=== PATIENT | male | born 1940 | race Caucasian/White ===

== ENCOUNTER 2019-04-03 13:50 | Observation (INO) ==
[2019-04-03 14:22] LABS: Basophils % 0.4 %; Eosinophils # 0.1 K/mcL (0.0-0.6); Eosinophils % 1.2 %; Hematocrit 50.9 % (37.5-50.1); Hemoglobin 17.1 g/dL (12.9-16.9); Immature Granulocytes % 0.3 % (0-4); Lymphocytes # 1.9 K/mcL (0.6-4.6); Lymphocytes % 27.5 %; Mean Corpuscular HGB Conc 33.6 g/dL (31.6-35.5); Mean Corpuscular Hemoglobin 29.3 pg (28.0-33.3); Mean Corpuscular Volume 87.2 fL (83.0-100.0); Mean Platelet Volume 11.9 fL (9.4-12.4); Monocytes # 0.5 K/mcL (0.0-1.3); Monocytes % 7.2 %; Neutrophils # 4.4 K/mcL (1.6-8.9); Platelet Count 175 K/mcL (140-400); Red Blood Count 5.84 M/mcL (4.19-5.50); Red Cell Distribution Width 14.2 % (11.5-14.5); Segmented Neutrophils % 63.4 %
[2019-04-03] MEDS ORDERED: Aspirin 81 MG TAB.CHEW PO STA (14:31)
[2019-04-03] MEDS ORDERED: Nitroglycerin 0.4 MG TAB.SUBL SL PRN (14:31)
[2019-04-03] MEDS ORDERED: GI Cocktail 40 ML EACH PO ONE (14:32)
--- NOTE | 2019-04-03 14:42 | Emergency Department Note ---
Disposition Clinical Impression: Esophagitis Chest pain Qualifiers: Chest pain type: unspecified Qualified Code(s): R07.9 - Chest pain, unspecified Disposition: Admitted As Inpatient Condition: Fair Time of Disposition: 17:52 General Adult HPI - General Chief complaint: ED Chest Pain Stated complaint: Chest Pain Time Seen by Provider: 04/03/19 14:01 Source: patient, family Limitations: no limitations Nursing Notes Reviewed: Yes Vital Signs Reviewed: Yes - History of Present Illness HPI Narrative: Patient is a 78-year-old male with a past medical history of aortic valve replacement, one cardiac stent, and one pack per day smoking presents to the emergency department for evaluation of chest pain that is been going on since yesterday. He describes it as a substernal sharp/pressure-like pain is currently a 4/10. States this feels improved if he stands up and worsens with sitting down or laying flat. States he also has a history of gastritis and this feels similar to that. Has admits to associated dyspnea. He denies any diaphoresis, nausea or vomiting but admits to feelings of indigestion and belching. States he does not feel similar to when he had his cardiac stents placed in the past. States that his aortic valve was replaced at the [facility]. His states that he does not routinely get his coagulation profile checked. However, he is on Coumadin. Pain Scale: 8 - Related Data Home Medications Medication Instructions Recorded Confirmed Omeprazole [PriLOSEC] 40 mg PO QPM 07/20/16 04/03/19 Aspirin [Lo-Dose Aspirin EC] 81 mg PO QPM 09/27/16 04/03/19 Tamsulosin HCl [Flomax] 0.4 mg PO HS 04/03/19 04/03/19 Warfarin [Coumadin] 4 mg PO 1800 04/03/19 04/03/19 Allergies Allergy/AdvReac Type Severity Reaction Status Date / Time No Known Allergies Allergy Verified 05/10/17 09:34 All systems ED: reviewed and negative except as stated. Review of Systems: As Per HPI Constitutional: Denies: fever Cardiovascular: Reports: chest pain. Denies: palpitations, dyspnea on exertion, edema, syncope, paroxysmal nocturnal dyspnea Respiratory: Reports: dyspnea. Denies: cough, wheezes, hemoptysis, sputum production Gastrointestinal: Denies: abdominal pain, vomiting, diarrhea, hematemesis, melena, hematochezia Musculoskeletal: Reports: back pain. Denies: neck pain Integumentary: Denies: rash Neurological: Denies: headache, weakness, numbness, paresthesias, confusion Past Medical History - Past Medical History Attestation: Yes The following information was validated with the patient. Medical history: Reports: cancer, valvular heart disease Surgical history: Reports: cholecystectomy, other Psychiatric history: Reports: no psych history - Social History Smoking Status: Current every day smoker Smokeless Tobacco Status: No Alcohol use: Reports: none Drug use: Reports: none Physical Exam CONSTITUTIONAL: A&O X 3. Sitting up in bed switching from a standing to the sitting position trying to find a position of comfort HEAD: Normocephalic; atraumatic EYES: PERRL, no scleral icterus NOSE: The nose is normal in appearance without rhinorrhea NECK: No JVD or distended neck veins RESP: Normal chest excursion with respiration; breath sounds clear and equal b ilaterally; no wheezes, rhonchi, or rales CARD: Regular rhythm, without murmurs, rub or gallop ABD: Distended; non-tender, soft, without rigidity, rebound or guarding,no pulsatile mass CHEST: No pain with palpation SKIN: Normal for age and race; warm and dry without diaphoresis ; no apparent lesions EXTREMITIES: Pulses are 2 plus and equal times 4 extremities, no peripheral edema or calf muscle pain - General Limitations: no limitations General appearance: alert, in no apparent distress Course Course Narrative: On review of patient's past medical history patient had an echo performed in November 2017 that showed an EF of 60-65% with atypical septal motion consistent with his postoperative status and mild left diastolic dysfunction. The mechanical aortic valve appeared well seated. Mild tricuspid regurgitation. He will undergo evaluation for cardiac ideology of this pain as well as treatment with nitroglycerin and a GI cocktail and then we will reassess. His initial EKG shows no ischemic changes. - Reevaluation(s) Reevaluation #1: The patient CT scan of the abdomen and pelvis showed wall thickening of the distal esophagus possibly related to esophagitis. The patient's pain improved with the nitroglycerin and then he received a GI cocktail which resolved his pain. Concern is that given the patient's risk factors with his cardiac history that this could be an underlying cardiac issue in which she requires admission as a chest pain rule out. The is a high likelihood of the possibility that was also related to his esophagitis he may require further treatment. Time: 19:22 Vital Signs Temperature 97.6 F 04/03/19 14:00 Pulse Rate 63 04/03/19 14:00 Respiratory Rate 20 04/03/19 14:00 Blood Pressure 151/84 04/03/19 14:00 O2 Sat by Pulse Oximetry 97 04/03/19 14:00 Temperature 97.6 F 04/03/19 14:00 Pulse Rate 64 04/03/19 18:32 Respiratory Rate 18 04/03/19 18:32 Blood Pressure 106/59 04/03/19 18:32 O2 Sat by Pulse Oximetry 94 04/03/19 18:32 Oxygen Delivery Oxygen Delivery Room Air Medical Decision Making - Medical Records Medical records reviewed: Yes I reviewed the patient's medical records. - Lab Data Lab results reviewed: Yes I reviewed the patient's lab results. Result diagrams: 04/03/19 14:04 04/03/19 14:04 Lab Results 04/03/19 04/03/19 04/03/19 Range/Units 14:04 14:04 14:04 WBC 6.9 (4.3-11.1) K/mcL RBC 5.84 H (4.19-5.50) M/mcL Hgb 17.1 H (12.9-16.9) g/dL Hct 50.9 H (37.5-50.1) % MCV 87.2 (83.0-100.0) fL MCH 29.3 (28.0-33.3) pg MCHC 33.6 (31.6-35.5) g/dL RDW 14.2 (11.5-14.5) % Plt Count 175 (140-400) K/mcL MPV 11.9 (9.4-12.4) fL Immature Gran % 0.3 (0-4) % Seg Neutrophils % 63.4 % Lymphocytes % 27.5 % Monocytes % 7.2 % Eosinophils % 1.2 % Basophils % 0.4 % Neutrophils # 4.4 (1.6-8.9) K/mcL Lymphocytes # 1.9 (0.6-4.6) K/mcL Monocytes # 0.5 (0.0-1.3) K/mcL Eosinophils # 0.1 (0.0-0.6) K/mcL Basophils # 0.0 (0.0-0.2) K/mcL PT 17.2 H (9.4-12.1) Seconds INR 1.5 Sodium 141 (136-145) mEq/L Potassium 4.1 (3.5-5.1) mEq/L Chloride 106 (98-107) mEq/L Carbon Dioxide 25 (23-29) mEq/L BUN 24 H (8-23) mg/dL Creatinine 0.86 (0.70-1.30) mg/dL Est GFR ( Amer) > 60 (> 60) Est GFR (Non-Af Amer) > 60 (> 60) BUN/Creatinine Ratio 28 H (6-26) Glucose 93 (70-105) mg/dL Calculated Osmolality 296 (280-300) Calcium 10.0 (8.6-10.3) mg/dL Troponin I < 0.03 (< 0.04) ng/mL Lipase 36 (11-82) Units/L - Radiology Data Radiology results reviewed: Yes I reviewed the patient's radiology results. Chest X-Ray 04/03/19 14:04 IMPRESSION: No acute process. Stable exam. D/ / Yon Land MD / Yon Land MD Interpreting Provider: Yon Land MD - EKG Data EKG #1 EKG attestation: Yes I reviewed and interpreted this EKG. EKG results narrative: EKG done at 12:27 shows sinus rhythm at a rate of 90 bpm. Normal axis. Intervals within normal limits. No signs of ST elevation, ST depression or Q waves present. This is unchanged from the EKG that was done in September 2015. Attestation Statement - Attestation Attestation: I, Paul Arce, examined this patient and my medical decision-making was reviewed with the DISK RECOATER/PA/Advanced Practice Nurse/Resident Physician. I agree with the documented findings, disposition and treatment plan as described except to the extent set forth below. 78-year-old male presents emergency Department with concerns of chest pain. Patient states he has a long history of reflux and this feels different than his previous reflux. Patient does state the pain worse and with sitting up straight. Patient has a history of cardiac disease in the past. He denies recent trauma. No changes in diet. Patient is continuously belching in the emergency department which she states has been present for many months has not changed today. CT of the abdomen and pelvis shows likely esophagitis but no other acute surgical pathology. Patient pain was initially relieved with nitroglycerin, it then returned. Patient admitted to the hospitalist for further care and evaluation.
[2019-04-03 14:51] LABS: BUN/Creatinine Ratio 28 (6-26); Blood Urea Nitrogen 24 mg/dL (8-23); Carbon Dioxide 25 mEq/L (23-29); Chloride 106 mEq/L (98-107); Glucose 93 mg/dL (70-105); Osmolality,Calculated 296 (280-300); Potassium 4.1 mEq/L (3.5-5.1); Sodium 141 mEq/L (136-145); Troponin I < 0.03 ng/mL (< 0.04); eGFR For Non-African Americans > 60 (> 60)
[2019-04-03 14:55] LABS: INR 1.5; Prothrombin Time 17.2 Seconds (9.4-12.1)
[2019-04-03] MEDS ORDERED: Isovue-370 500 ML BOTTLE IVP ONE (15:48)
[2019-04-03] MEDS ORDERED: Ondansetron 4 MG/2 ML VIAL IVP ONE (15:50)
[2019-04-03 16:02] LABS: Lipase 36 Units/L (11-82)
[2019-04-03] MEDS ORDERED: Ondansetron 4 MG/2 ML VIAL IVP PRN (21:46)
--- NOTE | 2019-04-03 21:50 | Internal Med History&Physical ---
Date of Encounter: 04/03/19 Time of Encounter: 21:41 Internal Medicine - H&P: HPI Chief complaint: chest pain Admitted From: Home Plans for Post Hospital Care: Home History of present illness: Mr. Wilkins is a 78 year old male with past medical history of aortic valve replacement, s/p stent placement reprted to ED but denied this to me, current smoker since 20 years old, who presents with chest pain. He reports CP that develoepd 2-3 days ago. HE states pain was 10/10 went down to 4/10 but resolved since he was seen in ED. He some trouble breathing as well but denied pain radiation to neck, jaw or arm. He denies any diaphoresis, nausea or vomiting but admits to feelings of indigestion and belching. States that his aortic valve was replaced at the [facility]. His stated to ED physician that he does not routinely get his coagulation profile checked. However, he is on Coumadin. In ED Troponin <0.03 x one. EKG shows sinus rhythm at a rate of [address] elevation, ST depression or Q waves present and no change from previous EKG. Chest x ray showed no acute distress. CT abdomen and plevis CT/CT abd pelvis w iv no oral IMPRESSION: 1. No acute abdominal or pelvic abnormality. 2. Wall thickening of the distal esophagus and gastric cardia, nonspecific. The findings could be related to esophagitis however a neoplastic process not excluded. Recommend follow-up endoscopy for further evaluation. 3. Prostatic hypertrophy. 4. Cholelithiasis. Past Med Surg Social Fam HX - Past Medical History Medical history: cancer, valvular heart disease Additional medical history: mechanical aortic manager membership Psychiatric history: no psych history - Past Surgical History Surgical History: cholecystectomy, other Additional surgical history: heart stent, heart valve replaced x2 - Social History Smoking Status: Current every day smoker Packs per day: 1 pack Smokeless Tobacco Status: No Alcohol use: none Drug use: none - Family History Father Age at : 78 Cause of : Heart failure Mother Living Status: Age at : 33 Cause of : DM Hx Family Cardiac Disorders: Yes Internal Medicine - H&P: Meds Omeprazole [PriLOSEC] 40 mg PO QPM 07/20/16 [History] Aspirin [Lo-Dose Aspirin EC] 81 mg PO QPM 09/27/16 [History] Tamsulosin HCl [Flomax] 0.4 mg PO HS 04/03/19 [History] Warfarin [Coumadin] 4 mg PO 1800 04/03/19 [History] Allergy/AdvReac Type Severity Reaction Status Date / Time No Known Allergies Allergy Verified 05/10/17 09:34 All Systems PM: A 10-system review of systems was performed and is negative for pertinent findings except as documented above in the HPI. - Constitutional Vitals: Temp Pulse Resp BP Pulse Ox 98.3 F 57 16 141/82 97 04/03/19 21:36 04/03/19 21:36 04/03/19 21:36 04/03/19 21:36 04/03/19 21:36 General appearance: Present: A&O X 3, no acute distress Exam: . - Head Head exam: Present: atraumatic, normocephalic - Eye Eye exam: Present: PERRL, conjuntiva pink, sclera anicteric Pupils: Present: PERRL - Neck Neck exam general surgery: Present: supple, trachea midline. Absent: lymphadenopathy - Respiratory Respiratory exam: Present: CTAB. Absent: accessory muscle use, rales, rhonchi, wheezes - Cardiovascular Cardiovascular exam: Present: RRR, +S1, +S2, systolic murmur. Absent: diastolic murmur, gallop, rubs Additional comments: positive murmur - GI/Abdominal GI/Abdominal exam: Present: normal bowel sounds, soft, no peritoneal signs. Absent: distended, tenderness - Extremities Exam Extremities exam: Present: warm, radial pulses palpable and symmetrical. Absent: calf tenderness, cyanotic, pedal edema - Neurological Exam Neurological exam: Present: CN II-XII intact, oriented X3, no focal deficits. Absent: pronater drift, facial droop, speech deficit - Skin Skin exam: Present: dry, intact Internal Med - H&P Results - Labs CBC & Chem 7: 04/03/19 14:04 04/03/19 14:04 Labs: Short CBC 04/03/19 Range/Units 14:04 WBC 6.9 (4.3-11.1) K/mcL Hgb 17.1 H (12.9-16.9) g/dL Hct 50.9 H (37.5-50.1) % Plt Count 175 (140-400) K/mcL Neutrophils # 4.4 (1.6-8.9) K/mcL BMP 04/03/19 14:04 Sodium 141 Potassium 4.1 Chloride 106 Carbon Dioxide 25 BUN 24 H Creatinine 0.86 Glucose 93 Calcium 10.0 Cardiac Enzymes 04/03/19 Range/Units 14:04 Troponin I < 0.03 (< 0.04) ng/mL - Impressions ITS Impressions Chest X-Ray 04/03/19 14:04 IMPRESSION: No acute process. Stable exam. D/ / Yon Land MD / Yon Land MD Interpreting Provider: Yon Land MD Abdomen/Pelvis CT 04/03/19 15:48 IMPRESSION: 1. No acute abdominal or pelvic abnormality. 2. Wall thickening of the distal esophagus and gastric cardia, nonspecific. The findings could be related to esophagitis however a neoplastic process not excluded. Recommend follow-up endoscopy for further evaluation. 3. Prostatic hypertrophy. 4. Cholelithiasis. D/ / 04/03/2019 16:54:10 Nuzhat Dinh MD / tejinder Interpreting Provider: Nuzhat Dinh MD - Assessment and Plan (1) Chest pain Current Visit: Yes Status: Acute Assessment and plan: Will cycle troponin. Will check echo in am. Nitro SL. ASA daily. Adding Atorvastain. Pt unsure about stent placement. Will check stress test in am. Checking D dimer. CT abd and pelvis showed moderate to severe atherosclerosis Qualifiers: Chest pain type: unspecified Qualified Code(s): R07.9 - Chest pain, unspecified (2) Aortic valve replaced Current Visit: No Status: Acute Assessment and plan: Pt on Coumadin and will request pharm to assist with dosing. INR 1.5. Will check INR in am. Will bridge with heparin (3) Esophagitis Current Visit: Yes Status: Acute Assessment and plan: Pt would likely benefit form out pt follow up with GI for EGD. Will continue PPI and given GI cocktail in ED. Monitor Hgb daily while on anticoagulation (4) Tobacco abuse Current Visit: No Status: Acute (5) Cholelithiasis Current Visit: Yes Status: Acute Assessment and plan: Pt denies RUQ abdominal pain. He denies N/V. Recommend out pt follow up with PCP. Qualifiers: Qualified Code(s): K80.20 - Calculus of gallbladder without cholecystitis without obstruction - Time Spent With Patient Total time spent is greater than 50% in coordination of care (as documented) at patient's floor/unit and/or counseling patient: 25 - 35 minutes
[2019-04-03] MEDS ORDERED: *HR* Heparin 5,000 UNIT/ML VIAL IVP ONE (21:55)
[2019-04-03] MEDS ORDERED: *HR* Heparin 5,000 UNIT/ML VIAL IVP PRN ×2 (21:55)
[2019-04-03 22:40] LABS: Hematocrit 46.9 % (37.5-50.1); Hemoglobin 15.7 g/dL (12.9-16.9); Mean Corpuscular HGB Conc 33.5 g/dL (31.6-35.5); Mean Corpuscular Hemoglobin 29.3 pg (28.0-33.3); Mean Corpuscular Volume 87.7 fL (83.0-100.0); Mean Platelet Volume 11.7 fL (9.4-12.4); Platelet Count 155 K/mcL (140-400); Red Blood Count 5.35 M/mcL (4.19-5.50); Red Cell Distribution Width 14.3 % (11.5-14.5)
[2019-04-03] MEDS: Heparin 25,000 UNIT/250 ML D5W 25,000 UNIT/250 ML IV.SOLN IVC SCH (22:40)
[2019-04-03 22:47] LABS: Heparin anti-factor XA UFH 0.02 IU/mL (0.30-0.70)
[2019-04-04 04:55] LABS: Basophils % 0.5 %; Eosinophils # 0.1 K/mcL (0.0-0.6); Eosinophils % 1.3 %; Hematocrit 48.1 % (37.5-50.1); Hemoglobin 16.3 g/dL (12.9-16.9); Immature Granulocytes % 0.4 % (0-4); Lymphocytes # 2.5 K/mcL (0.6-4.6); Lymphocytes % 31.4 %; Mean Corpuscular HGB Conc 33.9 g/dL (31.6-35.5); Mean Corpuscular Hemoglobin 29.5 pg (28.0-33.3); Mean Corpuscular Volume 87.1 fL (83.0-100.0); Mean Platelet Volume 11.9 fL (9.4-12.4); Monocytes # 0.6 K/mcL (0.0-1.3); Monocytes % 7.5 %; Neutrophils # 4.6 K/mcL (1.6-8.9); Platelet Count 157 K/mcL (140-400); Red Blood Count 5.52 M/mcL (4.19-5.50); Red Cell Distribution Width 14.3 % (11.5-14.5); Segmented Neutrophils % 58.9 %
[2019-04-04 05:06] LABS: INR 1.8; Prothrombin Time 20.7 Seconds (9.4-12.1)
[2019-04-04 05:14] LABS: Heparin anti-factor XA UFH 1.05 IU/mL (0.30-0.70)
[2019-04-04 05:32] LABS: Alanine Aminotransferase 11 Units/L (7-52); Albumin/Globulin Ratio 1.4 (1.1-2.2); Alkaline Phosphatase 68 Units/L (34-104); Aspartate Amino Transferase 12 Units/L (13-39); BUN/Creatinine Ratio 22 (6-26); Bilirubin,Total 0.5 mg/dL (0.3-1.0); Blood Urea Nitrogen 21 mg/dL (8-23); Calcium 9.5 mg/dL (8.6-10.3); Carbon Dioxide 25 mEq/L (23-29); Chloride 108 mEq/L (98-107); Chol/HDL Ratio 6.5 (0-4.9); Cholesterol 228 mg/dL (< 200); Globulin 2.8 g/dL (2.4-3.5); Glucose 127 mg/dL (70-105); HDL Cholesterol 35 mg/dL (40-59); LDL Cholesterol,Calculated 165 mg/dL (0-99); Magnesium 2.3 mg/dL (1.6-2.6); Osmolality,Calculated 295 (280-300); Sodium 140 mEq/L (136-145); Total Protein 6.8 g/dL (6.4-8.9); Triglycerides 141 mg/dL (< 150); Troponin I < 0.03 ng/mL (< 0.04); eGFR For Non-African Americans > 60 (> 60)
[2019-04-04] MEDS ORDERED: Regadenoson 0.4 MG/5 ML SYRINGE IVP ONE (06:13)
[2019-04-04] MEDS: Aspirin 81 MG TAB.CHEW PO SCH (09:26)
--- NOTE | 2019-04-04 15:28 | Internal Med Progress Note ---
Hospitalist Progress Note - Encounter Date of Encounter: 04/04/19 Time of Encounter: 15:25 - Subjective Interval History: Mr. Wilkins is a 78 year old male with past medical history of hypertension, hyperlipidemia, mechanical aortic valve replacement on Coumadin for anti coag, chronic tobacco dependence, CAD s/p stent placement presented to ED with left chest wall pain. In the ED his initial Troponin <0.03 x one. EKG shows sinus rhythm at a rate of [address] elevation, ST depression or Q waves present and no change from previous EKG. Chest x ray showed no acute distress. Patient was admitted in the hospital and placed him on lunchroom monitor. His serial troponin came back as negative. His INR was sub therapeutic , so started him on Heparin gtt. He did go for nuclear stress test. He denied any active chest pain now - Exam Vitals: Temp Pulse Resp BP Pulse Ox 97.9 F 60 18 122/79 95 04/04/19 15:19 04/04/19 15:19 04/04/19 15:19 04/04/19 15:19 04/04/19 15:19 Exam: Gen: Alert, awake, Oriented to time,place and person Chest: Diminished breath sounds B/L, No wheezing, No crackles, No rales Heart: S1S2+ RRR No murmurs Abd: Soft, NT, BS +, No organomegaly Ext: No edema, pulses are palpable, No calf tenderness Neuro : Benign findings Skin: No rash. - Assessment and Plan (1) Chest pain Current Visit: Yes Status: Acute Assessment and Plan: Serial troponin were negative No acute ischemic changes on EKG Cont ASA and Statin, unable to start him on beta cm due to HR in low 60's since patient is high risk for ACS he did go for nuclear stress test which came back is negative for ischemia/infarction (2) Aortic valve replaced Current Visit: No Status: Acute Assessment and Plan: s/p mechanical AV INR 1.8 cont heparin gtt to bridge with coumadin INR goal 2.5-3.5 (3) Esophagitis Current Visit: Yes Status: Chronic Assessment and Plan: PPI (4) Cholelithiasis Current Visit: Yes Status: Acute Assessment and Plan: Pt denies RUQ abdominal pain. He denies N/V. Recommend out pt follow up with PCP. (5) Tobacco abuse Current Visit: No Status: Chronic Assessment and Plan: Counseled to quit smoking placed on nicotine patch - Time Spent with Patient Total time spent is greater than 50% in coordination of care (as documented) at patient's floor/unit and/or counseling patient: Internal Medicine: Result - Labs CBC & Chem 7: 04/04/19 04:22 04/04/19 04:22 Labs: Short CBC 04/03/19 04/04/19 Range/Units 22:00 04:22 WBC 6.6 7.9 (4.3-11.1) K/mcL Hgb 15.7 16.3 (12.9-16.9) g/dL Hct 46.9 48.1 (37.5-50.1) % Plt Count 155 157 (140-400) K/mcL Neutrophils # 4.6 (1.6-8.9) K/mcL BMP 04/04/19 04:22 Sodium 140 Potassium 4.0 Chloride 108 H Carbon Dioxide 25 BUN 21 Creatinine 0.96 Glucose 127 H Calcium 9.5 Cardiac Enzymes 04/03/19 04/04/19 04/04/19 Range/Units 22:00 04:22 10:33 Troponin I < 0.03 < 0.03 < 0.03 (< 0.04) ng/mL Liver Function 04/04/19 Range/Units 04:22 Total Bilirubin 0.5 (0.3-1.0) mg/dL AST 12 L (13-39) Units/L ALT 11 (7-52) Units/L Alkaline Phosphatase 68 (34-104) Units/L Albumin 4.0 (3.5-5.7) g/dL - ABG Interpretation ABG results: PT/INR, D-dimer PT 20.7 Seconds (9.4-12.1) H 04/04/19 04:22 254 ng/mLFEU (0-500) 04/03/19 22:00 - Impressions Impressions Abdomen/Pelvis CT 04/03/19 15:48 IMPRESSION: 1. No acute abdominal or pelvic abnormality. 2. Wall thickening of the distal esophagus and gastric cardia, nonspecific. The findings could be related to esophagitis however a neoplastic process not excluded. Recommend follow-up endoscopy for further evaluation. 3. Prostatic hypertrophy. 4. Cholelithiasis. D/ /03/2019 16:54:10 Nuzhat Dinh MD / tejinder Interpreting Provider: Nuzhat Dinh MD Echocardiogram 04/04/19 21:46 Impressions: LVEF 60-65%. Atypical septal motion consistent with post-operative status. Mild left ventricular diastolic dysfunction. Normal right ventricular structure and function. Mechanical aortic valve not optimally visualized. Normal function by Doppler. Correlate with type and size of valve. Mild mitral regurgitation. Mild tricuspid regurgitation. Mild pulmonic regurgitation. No pulmonary hypertension. Left Ventricular Wall Motion: Rest Echo Findings All wall segments showed normal motion. Findings: Study Quality * Technically adequate exam. ECG Findings * Normal sinus rhythm. Left Ventricle * LVEF 60-65%. * Normal LV chamber size, wall thickness and function. * Atypical septal motion consistent with post-operative status. * Mild left ventricular diastolic dysfunction. Right Ventricle * Normal right ventricular structure and function. Left Atrium * Moderately dilated left atrium. Right Atrium * Normal right atrial size. Aortic Valve * No aortic regurgitation. * Mechanical aortic valve not well visualized. * No aortic stenosis. Mitral Valve * Mitral valve not well visualized. * No mitral stenosis. * Mild mitral annular calcification * Mild mitral regurgitation. Tricuspid Valve * Tricuspid valve not well visualized. * Mild tricuspid regurgitation. Pulmonic Valve * Pulmonic valve is not well visualized. * No pulmonic stenosis. * Mild pulmonic regurgitation. Pulmonary Artery * Pulmonary artery not well visualized. Aorta * Normally sized aortic root. Pericardium * There is no pericardial effusion present. Interatrial Septum * No evidence of PFO by color Doppler. IVC * The IVC is not well evaluated. Consult Discharge Plan - Plan Referrals: Surinder Miller MD [Primary Care Provider] - 04/10/19 10:00 am (1) Chest pain Qualifiers: Chest pain type: unspecified Qualified Code(s): R07.9 - Chest pain, unspecified (4) Cholelithiasis Qualifiers: Qualified Code(s): K80.20 - Calculus of gallbladder without cholecystitis without obstruction
[2019-04-04] MEDS: Nicotine 21 MG PATCH.TD24 TD SCH (16:53)
--- NOTE | 2019-04-04 17:47 | Electrocardiograph Report ---
[place] [id number] Test Date: 2019-04-03 Pat Name: Tobias Wilkins Department: 104 Room: 3B32 Gender: M [employer] Attendant: Eleonora : 1940 Requested By: Sabino Cotter Order Number: [id number] Reading MD: Claudia Mercado Measurements Intervals [place] Rate: 63 P: -8 MT: 107 QRS: 86 QRSD: 104 T: 86 QT: 402 QTc: 410 Interpretive Statements PROBABLY SINUS RHYTHM BASELINE ARTIFACT NONSPECIFIC ST-WAVE ABNORMALITY Electronically Signed On 04-04-2019 17:45:22 EDT by Claudia Mercado
[2019-04-04] MEDS ORDERED: *HR* Warfarin 4 MG TABLET PO SCH (18:00)
[2019-04-04] MEDS ORDERED: Warfarin perPT PO PRN (18:00)
[2019-04-04] MEDS: Heparin 25,000 UNIT/250 ML D5W 25,000 UNIT/250 ML IV.SOLN IVC SCH (19:58)
[2019-04-05 02:12] LABS: INR 1.7; Prothrombin Time 19.6 Seconds (9.4-12.1)
[2019-04-05] MEDS: Nicotine 21 MG PATCH.TD24 TD SCH (08:59)
[2019-04-05] MEDS: Aspirin 81 MG TAB.CHEW PO SCH (09:06)
[2019-04-05 11:15] VITALS: BP 108/67
[2019-04-05] MEDS ORDERED: *HR* Enoxaparin 100 MG/ML SYRINGE SQ STA (11:24)
--- NOTE | 2019-04-05 11:30 | Discharge Summary ---
- NOTES TO OUTPATIENT PROVIDER Notes to Outpatient Provider: f/u with PCP in 3-5 days. Please start taking Lovenox SQ Inj 100mg BID x 2 days. Continue taking Coumadin 6mg PO daily for next 2 days. Go for PT / INR in 2 days and f.u with PCP for further coumadin dosing Orders not resulted at time of discharge: Pending orders 04/03/19 21:48 NM jose perf SPECT multi [NM] Routine 04/06/19 02:32 Heparin anti-factor XA UFH [COAG] Timed 04/06/19 04:00 INR/PT [Prothrombin Time INR] [COAG] AM 0400 Date of Encounter: 04/05/19 Time of Encounter: 11:28 - Discharge Diagnosis (1) Chest pain Priority: Primary Status: Acute Qualifiers: Chest pain type: unspecified Qualified Code(s): R07.9 - Chest pain, unspecified (2) Aortic valve replaced Priority: Secondary Status: Acute (3) Esophagitis Priority: Secondary Status: Chronic (4) Cholelithiasis Priority: Secondary Status: Chronic Qualifiers: Qualified Code(s): K80.20 - Calculus of gallbladder without cholecystitis without obstruction (5) Tobacco abuse Priority: Secondary Status: Chronic Hospital course: Mr. Wilkins is a 78 year old male with past medical history of hypertension, hyperlipidemia, mechanical aortic valve replacement on Coumadin for anti coag, chronic tobacco dependence, CAD s/p stent placement presented to ED with left chest wall pain. In the ED his initial Troponin <0.03 x one. EKG shows sinus rhythm at a rate of [address] elevation, ST depression or Q waves present and no change from previous EKG. Chest x ray showed no acute distress. Patient was admitted in the hospital and placed him on precast molder. His serial troponin came back as negative. His INR was sub therapeutic , so started him on Heparin gtt. He did go for nuclear stress test which came back as negative for ischemia/infarction. His INR was still sub therapeutic @ 1.7 today. So inc his Coumadin to 6mg today and tomorrow and asked him to go for PT / INR in 2 days. Also will send him home on Lovenox 100mg mg SQ inj x 2 days to bridge with Coumadin. He denied any active chest pain now - Time Spent with Patient Total time spent providing and/or coordinating discharge services: - Discharge Medications Prescriptions: New Atorvastatin [Lipitor] 40 mg PO HS #30 tablet Enoxaparin [Lovenox] 100 mg SQ Q12HR #4 syr Nicotine Patch [Nicoderm] 21 mg TD DAILY #30 patch.td24 Continued Omeprazole [PriLOSEC] 40 mg PO QPM Aspirin [Lo-Dose Aspirin EC] 81 mg PO QPM Tamsulosin HCl [Flomax] 0.4 mg PO HS Warfarin [Coumadin] 4 mg PO 1800 Home Medications: Omeprazole [PriLOSEC] 40 mg PO QPM 07/20/16 [History] Aspirin [Lo-Dose Aspirin EC] 81 mg PO QPM 09/27/16 [History] Tamsulosin HCl [Flomax] 0.4 mg PO HS 04/03/19 [History] Warfarin [Coumadin] 4 mg PO 1800 04/03/19 [History] Atorvastatin [Lipitor] 40 mg PO HS #30 tablet 04/05/19 [Rx] Enoxaparin [Lovenox] 100 mg SQ Q12HR #4 syr 04/05/19 [Rx] Nicotine Patch [Nicoderm] 21 mg TD DAILY #30 patch.td24 04/05/19 [Rx] Allergies/Adverse Reactions: Allergy/AdvReac Type Severity Reaction Status Date / Time No Known Allergies Allergy Verified 05/10/17 09:34 Date of admission: 04/03/19 20:03 Primary care physician: Surinder Miller MD - Constitutional Vitals: Temp Pulse Resp BP Pulse Ox 97.7 F 67 16 108/67 92 04/05/19 11:13 04/05/19 11:13 04/05/19 11:13 04/05/19 11:13 04/05/19 11:13 General appearance: Present: A&O X 3, no acute distress Exam: Gen: Alert, awake, Oriented to time,place and person Chest: Diminished breath sounds B/L, No wheezing, No crackles, No rales Heart: S1S2+ RRR No murmurs Abd: Soft, NT, BS +, No organomegaly Ext: No edema, pulses are palpable, No calf tenderness Neuro : Benign findings Skin: No rash. - Patient Status Disposition: Home, Self-Care Condition: Fair - Discharge Instructions Follow Up With: Surinder Miller MD [Primary Care Provider] - 04/10/19 10:00 am - Diet and Activity Activity: increase activity as tolerated Diet: low salt diet
[2019-04-05] MEDS: Heparin 25,000 UNIT/250 ML D5W 25,000 UNIT/250 ML IV.SOLN IVC SCH (12:32)
[2019-04-05] MEDS ORDERED: *HR* Warfarin 3 MG TABLET PO ONE (18:00)
== END 2019-04-05 13:31 | disposition home or self-care (01) ==
LOC: 3BNU 13:50 → EMEROOARM 13:50 → 3BNU 20:21
PROVIDERS: ADMIT Student in an Organized Health Care Education/Training Program; ATTEND Student in an Organized Health Care Education/Training Program

== ENCOUNTER 2020-08-01 21:51 | Inpatient (IN) ==
[2020-08-01 22:45] LABS: INR 1.6; Prothrombin Time 17.9 Seconds (9.4-12.1)
[2020-08-01 22:46] LABS: Basophils % 0.3 %; Eosinophils # 0.2 K/mcL (0.0-0.6); Eosinophils % 2.1 %; Hemoglobin 14.9 g/dL (12.9-16.9); Immature Granulocytes % 0.3 % (0-4); Lymphocytes % 27.8 %; Mean Corpuscular HGB Conc 33.9 g/dL (31.6-35.5); Mean Corpuscular Hemoglobin 30.2 pg (28.0-33.3); Mean Corpuscular Volume 89.2 fL (83.0-100.0); Mean Platelet Volume 11.6 fL (9.4-12.4); Monocytes # 0.6 K/mcL (0.0-1.3); Neutrophils # 4.4 K/mcL (1.6-8.9); Platelet Count 176 K/mcL (140-400); Red Blood Count 4.93 M/mcL (4.19-5.50); Red Cell Distribution Width 13.7 % (11.5-14.5); Segmented Neutrophils % 61.5 %; White Blood Count 7.1 K/mcL (4.3-11.1)
[2020-08-01 22:48] LABS: Activated Partial Thrombo Time 38.1 Seconds (26.0-36.0)
[2020-08-01 22:58] LABS: Alanine Aminotransferase 19 Units/L (7-52); Albumin 4.2 g/dL (3.5-5.7); Albumin/Globulin Ratio 1.4 (1.1-2.2); Alkaline Phosphatase 86 Units/L (34-104); Aspartate Amino Transferase 17 Units/L (13-39); BUN/Creatinine Ratio 18 (6-26); Bilirubin,Direct 0.1 mg/dL (0.0-0.2); Bilirubin,Indirect 0.4 mg/dL (0.0-1.0); Bilirubin,Total 0.5 mg/dL (0.3-1.0); Blood Urea Nitrogen 17 mg/dL (8-23); Calcium 9.2 mg/dL (8.6-10.3); Carbon Dioxide 23 mEq/L (23-29); Chloride 109 mEq/L (98-107); Globulin 3.1 g/dL (2.4-3.5); Glucose 100 mg/dL (70-105); Lipase 17 Units/L (11-82); Osmolality,Calculated 292 (280-300); Potassium 3.7 mEq/L (3.5-5.1); Sodium 140 mEq/L (136-145); Total Protein 7.3 g/dL (6.4-8.9); Troponin I < 0.03 ng/mL (< 0.04); eGFR For African Americans > 60 (> 60); eGFR For Non-African Americans > 60 (> 60)
[2020-08-01 22:59] LABS: Bilirubin,Urine Negative (Negative); Blood,Urine Negative (Negative); Clarity,Urine Clear (Clear); Color,Urine Yellow (Yellow); Glucose,Urine (UA) Normal (Normal); Ketones,Urine Negative (Negative); Leukocyte Esterase,Urine Negative (Negative); Nitrite,Urine Negative (Negative); Protein,Urine Negative (Neg-Trace); Urobilinogen,Urine Normal (Normal)
[2020-08-02] MEDS ORDERED: Furosemide 40 MG/4 ML VIAL IVP ONE (00:08)
[2020-08-02 01:26] LABS: Adenovirus Not Detected (Not Detect); Coronavirus 229E Not Detected (Not Detect); Coronavirus HKU1 Not Detected (Not Detect); Coronavirus NL63 Not Detected (Not Detect); Coronavirus OC43 Not Detected (Not Detect)
[2020-08-02 01:27] LABS: Bordetella Pertussis Not Detected (Not Detect); Chlamydophila pneumoniae Not Detected (Not Detect); Human Metapneumovirus Not Detected (Not Detect); Human Rhinovirus/Enterovirus Not Detected (Not Detect); Influenza A Subtype 2009 H1 Not Detected (Not Detect); Influenza B Not Detected (Not Detect); Mycoplasma pneumoniae Not Detected (Not Detect); Parainfluenza Virus 1 Not Detected (Not Detect); Parainfluenza Virus 2 Not Detected (Not Detect); Parainfluenza Virus 3 Not Detected (Not Detect); Parainfluenza Virus 4 Not Detected (Not Detect); Respiratory Syncytial Virus Not Detected (Not Detect); SARS-CoV-2 Not Detected (Not Detect)
[2020-08-02 02:46] LABS: Basophils % 0.6 %; Eosinophils # 0.2 K/mcL (0.0-0.6); Eosinophils % 2.7 %; Hematocrit 45.4 % (37.5-50.1); Hemoglobin 15.2 g/dL (12.9-16.9); Immature Granulocytes % 0.4 % (0-4); Lymphocytes % 29.1 %; Mean Corpuscular HGB Conc 33.5 g/dL (31.6-35.5); Mean Corpuscular Hemoglobin 29.4 pg (28.0-33.3); Mean Corpuscular Volume 87.8 fL (83.0-100.0); Mean Platelet Volume 11.7 fL (9.4-12.4); Monocytes # 0.4 K/mcL (0.0-1.3); Monocytes % 6.4 %; Neutrophils # 4.1 K/mcL (1.6-8.9); Platelet Count 174 K/mcL (140-400); Red Blood Count 5.17 M/mcL (4.19-5.50); Red Cell Distribution Width 13.6 % (11.5-14.5); Segmented Neutrophils % 60.8 %; White Blood Count 6.7 K/mcL (4.3-11.1)
[2020-08-02 02:53] LABS: INR 1.6; Prothrombin Time 17.8 Seconds (9.4-12.1)
[2020-08-02 03:08] LABS: Alanine Aminotransferase 18 Units/L (7-52); Albumin 4.2 g/dL (3.5-5.7); Albumin/Globulin Ratio 1.4 (1.1-2.2); Alkaline Phosphatase 86 Units/L (34-104); Aspartate Amino Transferase 17 Units/L (13-39); BUN/Creatinine Ratio 18 (6-26); Bilirubin,Total 0.5 mg/dL (0.3-1.0); Blood Urea Nitrogen 16 mg/dL (8-23); Calcium 9.1 mg/dL (8.6-10.3); Carbon Dioxide 22 mEq/L (23-29); Chloride 107 mEq/L (98-107); Globulin 3.1 g/dL (2.4-3.5); Glucose 151 mg/dL (70-105); Osmolality,Calculated 294 (280-300); Potassium 3.5 mEq/L (3.5-5.1); Sodium 140 mEq/L (136-145); Total Protein 7.3 g/dL (6.4-8.9); Troponin I < 0.03 ng/mL (< 0.04); eGFR For African Americans > 60 (> 60); eGFR For Non-African Americans > 60 (> 60)
[2020-08-02] MEDS ORDERED: *HR* Heparin 5,000 UNIT/ML VIAL IVP PRN ×2 (03:24)
[2020-08-02] MEDS ORDERED: *HR* Heparin 5,000 UNIT/ML VIAL IVP ONE (03:24)
[2020-08-02] MEDS ORDERED: Perflutren Lipid Microsphere 1.3 ML in 0.9 % Sodium Chloride 8.7 ML IVP PRN (04:05)
[2020-08-02] MEDS: Heparin 25,000UNIT/250ML 1/2NS 25,000 UNIT/250 ML IV.SOLN IVC SCH (04:29)
[2020-08-02] MEDS ORDERED: Furosemide 40 MG/4 ML VIAL IVP SCH (09:00)
[2020-08-02] MEDS: Furosemide 40 MG/4 ML VIAL IVP SCH (11:34)
[2020-08-02] MEDS: Aspirin Enteric Coated 81 MG Tablet PO SCH (17:52)
[2020-08-02] MEDS ORDERED: *HR* Warfarin 2 MG TABLET PO ONE (18:00)
[2020-08-02] MEDS ORDERED: Warfarin perPT PO PRN (18:00)
[2020-08-03 02:08] LABS: INR 1.3; Prothrombin Time 14.9 Seconds (9.4-12.1)
[2020-08-03] MEDS: Heparin 25,000UNIT/250ML 1/2NS 25,000 UNIT/250 ML IV.SOLN IVC SCH ×2 (03:00→17:03)
[2020-08-03] MEDS: Furosemide 40 MG/4 ML VIAL IVP SCH (08:14)
[2020-08-03] MEDS: Aspirin Enteric Coated 81 MG Tablet PO SCH (17:03)
[2020-08-03] MEDS ORDERED: *HR* Warfarin 4 MG TABLET PO ONE (18:00)
[2020-08-04 02:28] LABS: Basophils % 0.5 %; Eosinophils # 0.1 K/mcL (0.0-0.6); Eosinophils % 1.5 %; Hematocrit 43.3 % (37.5-50.1); Hemoglobin 14.7 g/dL (12.9-16.9); Immature Granulocytes % 0.2 % (0-4); Lymphocytes # 2.3 K/mcL (0.6-4.6); Lymphocytes % 37.8 %; Mean Corpuscular HGB Conc 33.9 g/dL (31.6-35.5); Mean Corpuscular Hemoglobin 30.1 pg (28.0-33.3); Mean Corpuscular Volume 88.7 fL (83.0-100.0); Mean Platelet Volume 11.8 fL (9.4-12.4); Monocytes # 0.5 K/mcL (0.0-1.3); Neutrophils # 3.1 K/mcL (1.6-8.9); Platelet Count 166 K/mcL (140-400); Red Blood Count 4.88 M/mcL (4.19-5.50); Red Cell Distribution Width 13.6 % (11.5-14.5)
[2020-08-04 02:36] LABS: INR 1.2
[2020-08-04 02:47] LABS: BUN/Creatinine Ratio 36 (6-26); Blood Urea Nitrogen 33 mg/dL (8-23); Calcium 9.2 mg/dL (8.6-10.3); Carbon Dioxide 24 mEq/L (23-29); Chloride 108 mEq/L (98-107); Glucose 104 mg/dL (70-105); Magnesium 2.1 mg/dL (1.6-2.6); Osmolality,Calculated 296 (280-300); Potassium 3.7 mEq/L (3.5-5.1); Sodium 139 mEq/L (136-145); eGFR For African Americans > 60 (> 60); eGFR For Non-African Americans > 60 (> 60)
[2020-08-04] MEDS: Heparin 25,000UNIT/250ML 1/2NS 25,000 UNIT/250 ML IV.SOLN IVC SCH (02:59)
[2020-08-04] MEDS: Furosemide 40 MG/4 ML VIAL IVP SCH (09:12)
[2020-08-04] MEDS: Aspirin Enteric Coated 81 MG Tablet PO SCH (17:52)
[2020-08-04] MEDS ORDERED: *HR* Warfarin 4 MG TABLET PO ONE (18:00)
[2020-08-05 02:18] LABS: Basophils % 0.5 %; Eosinophils # 0.1 K/mcL (0.0-0.6); Eosinophils % 1.2 %; Hematocrit 44.1 % (37.5-50.1); Hemoglobin 14.7 g/dL (12.9-16.9); Immature Granulocytes % 0.4 % (0-4); Lymphocytes # 2.4 K/mcL (0.6-4.6); Lymphocytes % 42.2 %; Mean Corpuscular HGB Conc 33.3 g/dL (31.6-35.5); Mean Corpuscular Hemoglobin 29.6 pg (28.0-33.3); Mean Corpuscular Volume 88.7 fL (83.0-100.0); Mean Platelet Volume 11.7 fL (9.4-12.4); Monocytes # 0.4 K/mcL (0.0-1.3); Monocytes % 7.2 %; Neutrophils # 2.8 K/mcL (1.6-8.9); Platelet Count 170 K/mcL (140-400); Red Blood Count 4.97 M/mcL (4.19-5.50); Red Cell Distribution Width 13.6 % (11.5-14.5); Segmented Neutrophils % 48.5 %; White Blood Count 5.7 K/mcL (4.3-11.1)
[2020-08-05 02:23] LABS: INR 1.5; Prothrombin Time 16.6 Seconds (9.4-12.1)
[2020-08-05 02:38] LABS: BUN/Creatinine Ratio 31 (6-26); Blood Urea Nitrogen 32 mg/dL (8-23); Calcium 9.3 mg/dL (8.6-10.3); Carbon Dioxide 27 mEq/L (23-29); Chloride 106 mEq/L (98-107); Glucose 124 mg/dL (70-105); Osmolality,Calculated 296 (280-300); Potassium 3.8 mEq/L (3.5-5.1); Sodium 139 mEq/L (136-145); eGFR For African Americans > 60 (> 60); eGFR For Non-African Americans > 60 (> 60)
[2020-08-05] MEDS: Heparin 25,000UNIT/250ML 1/2NS 25,000 UNIT/250 ML IV.SOLN IVC SCH (03:17)
[2020-08-05] MEDS: Furosemide 40 MG/4 ML VIAL IVP SCH (07:45)
[2020-08-05] MEDS ORDERED: DilTIAZem 50 MG in 0.9 % Sodium Chloride 40 ML IVC SCH (10:00)
[2020-08-05] MEDS: Metoprolol XL (24 HR) Succ 50 MG TAB.ER.24H PO SCH (12:08)
[2020-08-05] MEDS: Aspirin Enteric Coated 81 MG Tablet PO SCH (17:31)
[2020-08-05] MEDS ORDERED: *HR* Warfarin 4 MG TABLET PO ONE (18:00)
[2020-08-06 02:08] LABS: Basophils % 0.3 %; Eosinophils # 0.1 K/mcL (0.0-0.6); Eosinophils % 1.3 %; Hematocrit 43.2 % (37.5-50.1); Hemoglobin 14.6 g/dL (12.9-16.9); Immature Granulocytes % 0.3 % (0-4); Lymphocytes # 2.3 K/mcL (0.6-4.6); Lymphocytes % 37.5 %; Mean Corpuscular HGB Conc 33.8 g/dL (31.6-35.5); Mean Corpuscular Hemoglobin 29.4 pg (28.0-33.3); Mean Corpuscular Volume 87.1 fL (83.0-100.0); Mean Platelet Volume 11.5 fL (9.4-12.4); Monocytes # 0.4 K/mcL (0.0-1.3); Monocytes % 6.8 %; Neutrophils # 3.3 K/mcL (1.6-8.9); Platelet Count 173 K/mcL (140-400); Red Blood Count 4.96 M/mcL (4.19-5.50); Red Cell Distribution Width 13.6 % (11.5-14.5); Segmented Neutrophils % 53.8 %; White Blood Count 6.1 K/mcL (4.3-11.1)
[2020-08-06 02:16] LABS: INR 1.8; Prothrombin Time 20.7 Seconds (9.4-12.1)
[2020-08-06 02:27] LABS: BUN/Creatinine Ratio 29 (6-26); Blood Urea Nitrogen 28 mg/dL (8-23); Carbon Dioxide 23 mEq/L (23-29); Chloride 106 mEq/L (98-107); Glucose 105 mg/dL (70-105); Osmolality,Calculated 292 (280-300); Potassium 3.5 mEq/L (3.5-5.1); Sodium 138 mEq/L (136-145); eGFR For African Americans > 60 (> 60); eGFR For Non-African Americans > 60 (> 60)
[2020-08-06 02:41] LABS: Thyroid Stimulating Hormone 3.662 mcIU/mL (0.340-5.600)
[2020-08-06] MEDS: Heparin 25,000UNIT/250ML 1/2NS 25,000 UNIT/250 ML IV.SOLN IVC SCH (02:51)
[2020-08-06 06:41] VITALS: BP 101/65
[2020-08-06] MEDS: Metoprolol XL (24 HR) Succ 50 MG TAB.ER.24H PO SCH (08:43)
[2020-08-06] MEDS: Furosemide 40 MG/4 ML VIAL IVP SCH (08:43)
[2020-08-06] MEDS ORDERED: *HR* Warfarin 4 MG TABLET PO ONE (18:00)
== END 2020-08-06 10:58 | disposition home or self-care (01) | DRG 293 ==
LOC: EMEROOARM 21:51 → 3BNU 21:51 → SUATTDRO 08-02 01:41 → 3BNU 08-02 02:06
PROVIDERS: ADMIT Student in an Organized Health Care Education/Training Program; ATTEND Pharmacist

== ENCOUNTER 2020-08-26 10:46 | Observation (INO) ==
[2020-08-26] MEDS ORDERED: Ondansetron 4 MG/2 ML VIAL IVP ONE (11:00)
[2020-08-26] MEDS ORDERED: 0.9 % Sodium Chloride 1,000 ML IVC ONE (11:00)
[2020-08-26 11:18] LABS: Basophils % 0.5 %; Eosinophils # 0.1 K/mcL (0.0-0.6); Eosinophils % 1.5 %; Hemoglobin 14.4 g/dL (12.9-16.9); INR 3.7; Immature Granulocytes % 0.5 % (0-4); Lymphocytes # 2.6 K/mcL (0.6-4.6); Lymphocytes % 40.1 %; Mean Corpuscular HGB Conc 32.7 g/dL (31.6-35.5); Mean Corpuscular Hemoglobin 29.1 pg (28.0-33.3); Mean Corpuscular Volume 89.1 fL (83.0-100.0); Mean Platelet Volume 11.6 fL (9.4-12.4); Monocytes # 0.6 K/mcL (0.0-1.3); Monocytes % 9.1 %; Neutrophils # 3.2 K/mcL (1.6-8.9); Platelet Count 161 K/mcL (140-400); Prothrombin Time 42.2 Seconds (9.4-12.1); Red Blood Count 4.94 M/mcL (4.19-5.50); Red Cell Distribution Width 13.8 % (11.5-14.5); Segmented Neutrophils % 48.3 %; White Blood Count 6.6 K/mcL (4.3-11.1)
[2020-08-26 11:31] LABS: Albumin/Globulin Ratio 1.3 (1.1-2.2); Bilirubin,Direct 0.1 mg/dL (0.0-0.2); Bilirubin,Indirect 0.3 mg/dL (0.0-1.0); Bilirubin,Total 0.4 mg/dL (0.3-1.0); Globulin 3.1 g/dL (2.4-3.5); Total Protein 7.1 g/dL (6.4-8.9)
[2020-08-26 11:32] LABS: BUN/Creatinine Ratio 16 (6-26); Blood Urea Nitrogen 16 mg/dL (8-23); Calcium 8.7 mg/dL (8.6-10.3); Carbon Dioxide 24 mEq/L (23-29); Chloride 110 mEq/L (98-107); Glucose 141 mg/dL (70-105); Osmolality,Calculated 296 (280-300); Potassium 3.9 mEq/L (3.5-5.1); Sodium 141 mEq/L (136-145); eGFR For African Americans > 60 (> 60); eGFR For Non-African Americans > 60 (> 60)
[2020-08-26 11:33] LABS: Troponin I < 0.03 ng/mL (< 0.04)
[2020-08-26] MEDS ORDERED: Acetaminophen 325 MG TABLET PO PRN (13:51)
[2020-08-26] MEDS ORDERED: Naloxone 0.4 MG/ML INJ IVP PRN (13:51)
[2020-08-26] MEDS ORDERED: *HR* Promethazine 25 MG/ML VIAL IVP PRN (13:51)
[2020-08-26] MEDS ORDERED: Ondansetron 4 MG/2 ML VIAL IVP PRN (13:51)
[2020-08-26] MEDS: Dexamethasone 4 MG/ML VIAL IVP SCH (17:47)
[2020-08-26] MEDS ORDERED: *HR* Warfarin 2 MG TABLET PO ONE (18:00)
[2020-08-26] MEDS ORDERED: Warfarin perPT PO PRN (18:00)
[2020-08-27] MEDS: Dexamethasone 4 MG/ML VIAL IVP SCH ×2 (00:23→07:56)
[2020-08-27 05:25] LABS: Hematocrit 43.5 % (37.5-50.1); Hemoglobin 14.4 g/dL (12.9-16.9); Mean Corpuscular HGB Conc 33.1 g/dL (31.6-35.5); Mean Corpuscular Hemoglobin 29.8 pg (28.0-33.3); Mean Corpuscular Volume 89.9 fL (83.0-100.0); Mean Platelet Volume 12.2 fL (9.4-12.4); Platelet Count 176 K/mcL (140-400); Red Blood Count 4.84 M/mcL (4.19-5.50); Red Cell Distribution Width 13.7 % (11.5-14.5); White Blood Count 7.3 K/mcL (4.3-11.1)
[2020-08-27 05:35] LABS: INR 3.4; Prothrombin Time 39.2 Seconds (9.4-12.1)
[2020-08-27 05:45] LABS: BUN/Creatinine Ratio 23 (6-26); Blood Urea Nitrogen 21 mg/dL (8-23); Carbon Dioxide 23 mEq/L (23-29); Chloride 109 mEq/L (98-107); Glucose 157 mg/dL (70-105); Osmolality,Calculated 296 (280-300); Potassium 4.1 mEq/L (3.5-5.1); Sodium 140 mEq/L (136-145); eGFR For African Americans > 60 (> 60); eGFR For Non-African Americans > 60 (> 60)
[2020-08-27 07:49] VITALS: BP 111/62
[2020-08-27] MEDS ORDERED: *HR* Warfarin 4 MG TABLET PO SCH (09:00)
[2020-08-27] MEDS ORDERED: Metoprolol XL (24 HR) Succ 50 MG TAB.ER.24H PO SCH (09:00)
[2020-08-27] MEDS ORDERED: Furosemide 40 MG TABLET PO SCH (09:00)
[2020-08-27] MEDS ORDERED: Aspirin Enteric Coated 81 MG Tablet PO SCH (09:00)
== END 2020-08-27 10:15 | disposition home or self-care (01) ==
LOC: EMEROOARM 10:46 → 3BNU 10:46
PROVIDERS: ADMIT Internal Medicine; ATTEND Internal Medicine

== ENCOUNTER 2020-12-12 11:13 | Observation (INO) ==
[2020-12-12 11:58] LABS: Basophils % 0.4 %; Eosinophils % 0.6 %; Hematocrit 45.3 % (37.5-50.1); Hemoglobin 14.8 g/dL (12.9-16.9); INR 3.3; Immature Granulocytes % 0.4 % (0-4); Lymphocytes # 1.8 K/mcL (0.6-4.6); Lymphocytes % 36.3 %; Mean Corpuscular HGB Conc 32.7 g/dL (31.6-35.5); Mean Corpuscular Hemoglobin 27.9 pg (28.0-33.3); Mean Corpuscular Volume 85.3 fL (83.0-100.0); Mean Platelet Volume 12.2 fL (9.4-12.4); Monocytes # 0.4 K/mcL (0.0-1.3); Monocytes % 7.6 %; Neutrophils # 2.7 K/mcL (1.6-8.9); Platelet Count 142 K/mcL (140-400); Prothrombin Time 36.7 Seconds (9.4-12.1); Red Blood Count 5.31 M/mcL (4.19-5.50); Red Cell Distribution Width 14.7 % (11.5-14.5); Segmented Neutrophils % 54.7 %; White Blood Count 4.9 K/mcL (4.3-11.1)
[2020-12-12 12:07] LABS: BUN/Creatinine Ratio 25 (6-26); Blood Urea Nitrogen 20 mg/dL (8-23); Calcium 9.2 mg/dL (8.6-10.3); Carbon Dioxide 23 mEq/L (23-29); Chloride 108 mEq/L (98-107); Glucose 121 mg/dL (70-105); Osmolality,Calculated 290 (280-300); Potassium 4.3 mEq/L (3.5-5.1); Sodium 138 mEq/L (136-145); eGFR For African Americans > 60 (> 60); eGFR For Non-African Americans > 60 (> 60)
[2020-12-12 12:24] LABS: Troponin I < 0.03 ng/mL (< 0.04)
[2020-12-12] MEDS ORDERED: Naloxone 0.4 MG/ML INJ IVP PRN (14:33)
[2020-12-12] MEDS ORDERED: *HR* Warfarin 4 MG TABLET PO ONE (18:00)
[2020-12-12] MEDS ORDERED: Warfarin perPT PO PRN (18:00)
[2020-12-13 05:50] LABS: Basophils % 0.2 %; Eosinophils # 0.1 K/mcL (0.0-0.6); Hematocrit 44.4 % (37.5-50.1); Hemoglobin 14.6 g/dL (12.9-16.9); Immature Granulocytes % 0.2 % (0-4); Lymphocytes % 41.2 %; Mean Corpuscular HGB Conc 32.9 g/dL (31.6-35.5); Mean Corpuscular Hemoglobin 28.1 pg (28.0-33.3); Mean Corpuscular Volume 85.5 fL (83.0-100.0); Monocytes # 0.3 K/mcL (0.0-1.3); Neutrophils # 2.4 K/mcL (1.6-8.9); Platelet Count 146 K/mcL (140-400); Red Blood Count 5.19 M/mcL (4.19-5.50); Red Cell Distribution Width 14.6 % (11.5-14.5); Segmented Neutrophils % 50.4 %; White Blood Count 4.9 K/mcL (4.3-11.1)
[2020-12-13 05:56] LABS: INR 2.9; Prothrombin Time 33.1 Seconds (9.4-12.1)
[2020-12-13 06:13] LABS: BUN/Creatinine Ratio 18 (6-26); Blood Urea Nitrogen 15 mg/dL (8-23); Calcium 9.4 mg/dL (8.6-10.3); Carbon Dioxide 22 mEq/L (23-29); Chloride 109 mEq/L (98-107); Chol/HDL Ratio 6.4 (0-4.9); Cholesterol 205 mg/dL (< 200); Glucose 113 mg/dL (70-105); HDL Cholesterol 32 mg/dL (40-59); LDL Cholesterol,Calculated 120 mg/dL (< 100); Osmolality,Calculated 288 (280-300); Potassium 3.8 mEq/L (3.5-5.1); Sodium 138 mEq/L (136-145); Triglycerides 266 mg/dL (< 150); eGFR For African Americans > 60 (> 60); eGFR For Non-African Americans > 60 (> 60)
[2020-12-13] MEDS ORDERED: Acetaminophen 325 MG TABLET PO PRN (09:17)
[2020-12-13] MEDS: Aspirin Enteric Coated 81 MG Tablet PO SCH (09:17)
[2020-12-13] MEDS ORDERED: *HR* Warfarin 4 MG TABLET PO ONE (18:00)
[2020-12-14 03:38] LABS: INR 3.3; Prothrombin Time 37.3 Seconds (9.4-12.1)
[2020-12-14 07:24] VITALS: BP 113/63
[2020-12-14] MEDS: Aspirin Enteric Coated 81 MG Tablet PO SCH (09:04)
== END 2020-12-14 10:59 | disposition home or self-care (01) ==
LOC: 3ANU 11:13 → EMEROOARM 11:13 → SUATTDRO 14:32 → 3ANU 15:56
PROVIDERS: ADMIT Internal Medicine; ATTEND Internal Medicine